=== PATIENT | female | born 1975 | race Hispanic/Latino ===

== ENCOUNTER 2018-08-10 19:11 | Emergency (ER) | payer OTHER ==
[~2018-08-10] VITALS: Ht 157.5 cm; Wt 74.4 kg
--- OUTSIDE RECORDS SUMMARY | 2018-08-10 19:13 | XMS REPORT ---
Author Author Brenda Mcelroy Organization [employer] Address Unknown Phone Unavailable Care Team Providers Care Integration Software Developer Name Role Phone Brenda Mcelroy CP Unavailable Allergies, Adverse Reactions, Alerts Substance Reaction Event Type N.K.D.A. Info Not Available Non Drug Allergy Problems Problem Type Condition Code Onset Dates Condition Status Problem Screening for cervical cancer Z12.4 Active Problem Screening cholesterol level Z13.220 Active Problem Carpal tunnel syndrome of right wrist G56.01 Active Assessment Right wrist pain M25.531 Active Assessment Carpal tunnel syndrome of right wrist G56.01 Active Problem Screening for diabetes mellitus Z13.1 Active Assessment RLQ abdominal pain R10.31 Active Medications Medication Code System Code Instructions Start Date End Date Status Dosage Vitamin D3 [facility] [address] UNIT Orally once a week for 8 weeks August 08, 2016 October 07, 2016 Active 1 tablet Vital Signs Date/Time: September 10, 2016 BMI 32.74 Index Weight 179 lbs Height 62 in Temperature 96.9 F Blood Pressure Diastolic 81 mm Hg Blood Pressure Systolic 123 mm Hg Results No Known Results Summary Purpose [employer] Submission
--- OUTSIDE RECORDS SUMMARY | 2018-08-10 19:13 | XMS REPORT | Continuity of Care Document ---
Author Author [facility] Interface Address Unknown Phone Unavailable Problems Problem Status Onset Date Classification Date Reported Comments Source BREAST NODULE Active 08/12/2012 [facility] Screening cholesterol level Active Problem 09/12/2016 Enayet Rahim Screening for diabetes mellitus Active Problem 09/12/2016 Enayet Rahim Screening for cervical cancer Active Problem 09/12/2016 Enayet Rahim Encounter to establish care Active Diagnosis 08/01/2016 Enayet Rahim Carpal tunnel syndrome of right wrist Active Problem 09/12/2016 Enayet Rahim Right wrist pain Active Diagnosis 09/12/2016 Enayet Rahim RLQ abdominal pain Active Diagnosis 09/12/2016 Enayet Rahim Medications Medication Details Route Status Patient Instructions Ordering Provider Order Date Source Vitamin D3 1 tablet Orally Active 59461 UNIT Orally once a week for 8 weeks [facility] 08/08/2016 Enayet Rahim Allergies, Adverse Reactions, Alerts Substance Category Reaction Severity Reaction type Status Date Reported Comments Source N.K.D.A. Adverse Reaction Info Not Available Adverse Reaction Active 09/10/2016 Enayet Rahim Immunizations Immunization Date Given Site Status Last Updated Comments Source Results Order Name Results Value Reference Range Date Interpretation Comments Source Digital Mammo DX Alex MA Digital Mammo DX Alex MA - DIGITAL MAMMO DX ALEX MA BILATERAL [facility] DIGITAL DIAGNOSTIC MAMMOGRAM WITH CAD: 08/26/2012 CLINICAL: Lump Or Mass In Breast. Current study was evaluated with a Computer Aided Detection (CAD) system. No prior exams were available for comparison. Current study contains 6 films. The tissue of both breasts is extremely dense, which lowers the sensitivity of mammography. No significant masses, calcifications, or other findings are seen in either breast. IMPRESSION: NEGATIVE There is no mammographic abnormality seen in the right breast to correspond with the area of clinical concern and palpable abnormality in the sub-areolar depth which likely represent normal fibroglandular tissue, however clinical followup is recommended. If clinical symptoms persist, breast ultrasound may be of value in further workup. There is no mammographic evidence of malignancy. A screening mammogram in four years is recommended. SL: 13 Braulio Zavala sns/:08/26/2012 16:06:30 Licensed Optician: Liana Oneill [facility] letter sent: Normal/AbHistory Mammogram BI-RADS: 1 Negative 08/26/2012 - - Read by: Braulio Zavala Dictated Date/time: 08/26/12 16:06 Electronically Signed by: Braulio Zavala MD 08/26/12 16:06 FINAL REPORT [facility] Vital Signs Vital Sign Value Date Comments Source Weight 179 09/10/2016 Enayet Rahim Height 62 09/10/2016 Enayet Rahim Temperature Oral (F) 96.9 F 09/10/2016 Enayet Rahim Diastolic (mm Hg) 81 09/10/2016 Enayet Rahim Systolic (mm Hg) 123 09/10/2016 Enayet Rahim Weight 178 07/30/2016 Enayet Rahim Height 62 07/30/2016 Enayet Rahim Temperature Oral (F) 98.1 F 07/30/2016 Enayet Rahim Diastolic (mm Hg) 83 07/30/2016 Enayet Rahim Systolic (mm Hg) 128 07/30/2016 Enayet Rahim Encounters Location Location Details Encounter Type Encounter Number Reason For Visit Attending Provider ADM Date DC Date Status Source [facility] Outpatient [id number] BREAST NODULE JESUS PERRY 08/26/2012 Active [facility] Outpatient [id number] NURSE VISIT 10/17/2014 Active [facility] Outpatient [id number] NURSE VISIT 10/17/2014 Active [facility] Outpatient [id number] JESUS PRANGLE 11/07/2014 Active [facility] Outpatient [id number] JESUS PRANGLE 02/22/2015 Active [facility] Outpatient [id number] JESSU PRANGLE 07/10/2015 Active [facility] Outpatient [id number] JESUS PRANGLE 10/23/2015 Active [facility] Outpatient [id number] KEKE ISMAIL 10/23/2015 Active [facility] Procedures Procedure Code Date Perfomer Comments Source
--- OUTSIDE RECORDS SUMMARY | 2018-08-10 19:13 | XMS REPORT ---
Author Author Brenda Mcelroy Organization [employer] Address Unknown Phone Unavailable Care Team Providers Care Animal Attendants And Trainers Name Role Phone Brenda Mcelroy CP Unavailable Allergies, Adverse Reactions, Alerts Substance Reaction Event Type N.K.D.A. Info Not Available Non Drug Allergy Problems Problem Type Condition Code Onset Dates Condition Status Problem Screening cholesterol level Z13.220 Active Problem Screening for diabetes mellitus Z13.1 Active Problem Screening for cervical cancer Z12.4 Active Assessment Screening cholesterol level Z13.220 Active Assessment Screening for diabetes mellitus Z13.1 Active Assessment Encounter to establish care Z76.89 Active Assessment Screening for cervical cancer Z12.4 Active Medications No Known Medications Vital Signs Date/Time: July 30, 2016 BMI 32.55 Index Weight 178 lbs Height 62 in Temperature 98.1 F Blood Pressure Diastolic 83 mm Hg Blood Pressure Systolic 128 mm Hg Results No Known Results Summary Purpose [employer] Submission
--- OUTSIDE RECORDS SUMMARY | 2018-08-10 19:13 | XMS REPORT ---
Author Author Brenda Mcelroy Organization [employer] Address Unknown Phone Unavailable Care Team Providers Care Humanities Teacher Name Role Phone Brenda Mcelroy CP Unavailable Allergies No Known Allergies Problems Problem Type Condition Code Onset Dates Condition Status Problem Screening cholesterol level Z13.220 Active Problem Screening for diabetes mellitus Z13.1 Active Problem Screening for cervical cancer Z12.4 Active Medications Medication Code System Code Instructions Start Date End Date Status Dosage Vitamin D3 [facility] [address]2666 UNIT Orally once a week for 8 weeks August 08, 2016 October 07, 2016 Active 1 tablet Results No Known Results Summary Purpose [employer] Submission
[2018-08-10] MEDS ORDERED: TETANUS/DIPHTHERIA TOX ADULT 0.5 ML SYR IM ONE (19:45)
[2018-08-10] MEDS ORDERED: BACITRACIN ZINC 0.9GM TP ONE (20:00)
== END 2018-08-10 21:12 | disposition home or self-care (01) ==
LOC: ER 19:11
DX: S61.512A Laceration without foreign body of left wrist, initial encounter (principal); W26.0XXA Contact with knife, initial encounter; Y92.008 Other place in unspecified non-institutional (private) residence as the place of occurrence of the external cause
CPT/HCPCS: 90714; 99283

== ENCOUNTER 2018-12-07 09:35 | Emergency (ER) | payer OTHER ==
[~2018-12-07] VITALS: Ht 157.5 cm; Wt 75.8 kg
--- OUTSIDE RECORDS SUMMARY | 2018-12-07 09:37 | XMS REPORT | Continuity of Care Document ---
Author Author [employer] Organization [employer] Address Unknown Phone Unavailable Care Team Providers Care Egg And Spice Mixer Name Role Phone Kr[employer] Information [employer] Unavailable Unavailable Problems Problem Status Onset Date Classification Date Reported Comments Source BREAST NODULE Active 08/12/2012 [facility] Screening cholesterol level Active Problem 09/12/2016 Enayet Rahim Screening for diabetes mellitus Active Problem 09/12/2016 Enayet Rahim Screening for cervical cancer Active Problem 09/12/2016 Enayet Rahim Carpal tunnel syndrome of right wrist Active Problem 09/12/2016 Enayet Rahim Right wrist pain Active Diagnosis 09/12/2016 Enayet Rahim RLQ abdominal pain Active Diagnosis 09/12/2016 Enayet Rahim Encounter to establish care Active Diagnosis 08/01/2016 Enayet Rahim Medications Medication Details Route Status Patient Instructions Ordering Provider Order Date Source Vitamin D3 1 tablet Orally Active 25596 UNIT Orally once a week for 8 weeks [facility] 08/08/2016 Enayet Rahim Allergies, Adverse Reactions, Alerts Substance Category Reaction Severity Reaction type Status Date Reported Comments Source N.K.D.A. Adverse Reaction Info Not Available Adverse Reaction Active 09/10/2016 Enayet Rahim Immunizations No Data Provided for This Section Results No Data Provided for This Section Pathology Reports No Data Provided for This Section Diagnostic Reports Report Value Date Source Digital Mammo DX Alex MA - DIGITAL [...] recommended. SL: 13 Braulio Zavala sns/:08/26/2012 16:06:30 Choir Director: Liana Oneill, [facility] letter sent: Normal/AbHistory Mammogram BI-RADS: 1 Negative 08/26/2012 [facility] Consultation Notes No Data Provided for This Section Discharge Summaries No Data Provided for This Section History and Physicals No Data Provided for This Section Vital Signs Vital Sign Value Date Comments [...] Provider ADM Date DC Date Status Source [facility] Outpatient [id number] BREAST NODULE [facility] 08/26/2012 Active [facility] Outpatient [id number] NURSE VISIT 10/17/2014 Active [facility] Outpatient [id number] NURSE VISIT 10/17/2014 [facility] Outpatient [id number] RENO PRANGLE 11/07/2014 [facility] Outpatient [id number] RENO PRANGLE 02/22/2015 [facility] Outpatient [id number] RENO PRANGLE 07/10/2015 [facility] Outpatient [id number] RENO PRALE 10/23/2015 [facility] Outpatient [id number] KEKE ISMAIL 10/23/2015 Active [facility] Procedures No Data Provided for This Section Assessment and Plan No Data Provided for This Section Plan of Care No Data Provided for This Section Social History No Data Provided for This Section Family History No Data Provided for This Section Advance Directives No Data Provided for This Section Functional Status No Data Provided for This Section
[2018-12-07] MEDS ORDERED: SODIUM CHLORIDE 0.9% 1000ML 1,000 ML IV ONE (10:00)
[2018-12-07] MEDS ORDERED: MECLIZINE HCL 12.5 MG TAB PO ONE (10:00)
[2018-12-07] MEDS ORDERED: MECLIZINE HCL 12.5 MG TAB ONE (10:07)
--- NOTE | 2018-12-07 10:36 | Diagnostic Imaging Report ---
History: Dizziness, loss of hearing in left ear Comparison studies: None Technique: Axial images were obtained from the skull base to the vertex. Coronal and sagittal reconstructions obtained from the axial data. Dose modulation, iterative reconstruction, and/or weight based adjustment of the mA/kV was utilized to reduce the radiation dose to as low as reasonably achievable. Findings: Scalp/skull: No abnormalities. No fractures, blastic or lytic lesions. Extra-axial spaces: No masses. No fluid collections. Brain sulci: Appropriate for age. Ventricles: Normal in size and configuration. No hydrocephalus. Parenchyma: No abnormal densities. No masses, hemorrhage, acute or chronic cortical vascular insults. Sellar/suprasellar region: No abnormalities Craniocervical junction: Patent foramen magnum. No Chiari one malformation. IMPRESSION: No abnormalities . Signed by: DR Nam Ramirez M.D. on 12/07/2018 10:33 AM
--- NOTE | 2018-12-07 10:46 | NUR ---
Called Shaye in Radiology at [facility] and requested that MRI be called in for Stat MRI of brain for stroke and MRA of head and neck to r/o stroke
--- NOTE | 2018-12-07 11:05 | NUR ---
MRI will be there at noon and [facility] was called to transport pt to MRI and back.
[2018-12-07] MEDS ORDERED: LORAZEPAM INJ 2 MG/ML VIAL IV ONE (11:15)
[2018-12-07 11:35] LABS: ALANINE AMINOTRANSFERASE 9 IU/L (0-55); ALBUMIN 3.9 g/dL (3.5-5.0); ALBUMIN/GLOBULIN RATIO 1.2 (0.8-2.0); ALKALINE PHOSPHATASE 83 IU/L (40-150); ANION GAP 11.8 mmol/L (8-16); BLOOD UREA NITROGEN 11 mg/dL (7-26); BUN/CREATININE RATIO 15 (6-25); CALCIUM 9.2 mg/dL (8.4-10.2); CARBON DIOXIDE 21 mmol/L (22-29); CHLORIDE 107 mmol/L (98-107); CREATININE, SERUM 0.71 mg/dL (0.57-1.11); EST GLOMERULAR FILTRATION RATE > 60 ML/MIN (60-); GLUCOSE 90 mg/dL (74-118); POTASSIUM 3.8 mmol/L (3.5-5.1); SODIUM 136 mmol/L (136-145)
--- NOTE | 2018-12-07 12:00 | NUR ---
pt taken to [facility] for an MRI
[2018-12-07] MEDS ORDERED: SODIUM CHLORIDE 0.9% 100 ML 100 ML ONE (12:06)
[2018-12-07] MEDS ORDERED: GADOBENATE DIMEGLUMINE 1 ML IV ONE (12:06)
--- NOTE | 2018-12-07 14:14 | Diagnostic Imaging Report ---
History: Nausea, dizziness, hearing loss for 2 days Comparison studies: CT head 12/07/2018 Technique: Pre-contrast: Sagittal T2; axial T1-IR, MPGR, DWI, T2 FLAIR. Post-contrast: axial and coronal T1. 2-D cervical and 3-D intracranial avmz-cy-tqieaw MRA's . Power injected MRA of the Intravenous contrast: 15 cc MultiHance Findings: Brain: Scalp: No abnormal signal. No masses. Bone marrow: Normal in signal intensity. Brain sulci: Mildly prominent . Ventricles: Normal in size . No hydrocephalus. Parenchyma: No abnormal signal intensities. No masses, hemorrhage, acute or chronic vascular insults. Suprasellar region: No abnormalities. Craniocervical junction: No abnormalities. Patent foramen magnum. No Chiari one malformation. Vessels: Normal flow-voids in the arteries and sinuses. Cervical MRA: Carotid arteries: No flow abnormalities . Vertebral arteries: No flow abnormalities . Left vertebral artery arises from the arch. Intracranial MRA: Internal carotid arteries: No flow abnormalities . Vertebrobasilar circulation: No flow abnormalities . Anatomical variants: Acom: Visualized. Pcoms: Visualized bilaterally. Vertebral arteries: Co-dominant. IMPRESSION: Brain: 1. Normal Cervical and intracranial MRAs: 1. Normal Signed by: DR Nam Ramirez M.D. on 12/07/2018 3:22 PM
--- NOTE | 2018-12-07 14:30 | NUR ---
Pt returned from [facility] and MRI to room 2 in [facility].
[2018-12-07] MEDS ORDERED: VALIUM2 MG PO (14:32)
[2018-12-07] MEDS ORDERED: MECLIZINE HCL12.5 MG PO (14:32)
[2018-12-07] MEDS ORDERED: AUGMENTIN 875-1 EACH PO (14:34)
[2018-12-07] MEDS ORDERED: ONDANSETRON ODT8 MG PO (14:34)
[2018-12-07 14:57] VITALS: BP 115/54
== END 2018-12-07 14:57 | disposition home or self-care (01) ==
LOC: FSED 09:35
DX: R42 Dizziness and giddiness (principal); R11.2 Nausea with vomiting, unspecified; H91.90 Unspecified hearing loss, unspecified ear; R26.2 Difficulty in walking, not elsewhere classified
CPT/HCPCS: 36415; 70450; 70544; 70549; 70553; 80053; 81003; 81025; 85025; 93005; 99284; A9577; J2060; J7030; J8597